=== PATIENT | female | born 1975 ===

== ENCOUNTER → 2022-06-18 12:54 | Outpatient (BNVA) | payer OTHER, SELFPAY | PROVIDERS: PCP Internal Medicine; Referring Provider Internal Medicine; Visit Provider Physician Assistant Surgical | DX: E66.01 Morbid (severe) obesity due to excess calories (principal); Z71.3 Dietary counseling and surveillance; Z68.41 Body mass index [BMI] 40.0-44.9, adult | CPT/HCPCS: 99202 ==

== ENCOUNTER 2022-06-22 12:38 | Outpatient (REF) | payer OTHER, SELFPAY ==
[2022-06-23 11:47] LABS: H Pylori Breath Test Negative (Negative)
== END 2022-06-22 12:39 | disposition home or self-care (01) ==
LOC: HO.LNP 12:38
PROVIDERS: PCP Internal Medicine; Visit Provider Physician Assistant Surgical
DX: E66.01 Morbid (severe) obesity due to excess calories (principal)
CPT/HCPCS: 83013; 99211

== ENCOUNTER 2022-07-07 09:01 | Outpatient (REF) | payer OTHER, SELFPAY ==
--- NOTE | ~2022-07-07 | XR_ITS ---
EXAMINATION: XR CHEST CLINICAL INFORMATION: Bariatric service evaluation. E66.01. COMPARISON: None TECHNIQUE: 2 views of the chest were obtained. FINDINGS: The lungs are clear. There is no hyperinflation, airspace consolidation, groundglass opacity. The costophrenic sulci are well-defined. The heart is normal in size. The vascularity is normal. The hilar and mediastinal contours and visualized bony structures are unremarkable. XR/XR chest 2V IMPRESSION: Unremarkable examination.
[2022-07-07 09:19] LABS: MANUAL DIFF FLAG NO
[2022-07-07 09:49] LABS: Estimated Average Glucose 105 mg/dL; Hemoglobin A1c % 5.3 %
[2022-07-07 10:01] LABS: Basophils Absolute Auto 0.1 X10*3/uL (0.0-0.2); Eosinophils Absolute Auto 0.1 X10*3/uL (0.0-0.4); Eosinophils Percent Auto 1.7 % (0-4); Hematocrit 42.1 % (37.0-47.0); Hemoglobin 14.2 g/dl (12.0-16.0); Imm Gran Abs Auto 0.01 X10*3/uL (0.00-0.03); Imm Gran Pct Auto 0.2 % (0.0-0.4); Lymphocytes Absolute Auto 2.2 X10*3/uL (1.2-4.9); Lymphocytes Percent Auto 38.3 % (20-40); Mean Corpuscular HGB Conc 33.7 g/dl (31.0-35.0); Mean Corpuscular Hemoglobin 29.2 pg (27.0-33.0); Mean Corpuscular Volume 86.4 fL (80.0-98.0); Mean Platelet Volume 9.9 fL (9.4-12.3); Monocytes Absolute Auto 0.3 X10*3/uL (0.1-1.2); Monocytes Percent Auto 5.9 % (2-11); Neutrophils Absolute Auto 3.1 x10*3/uL (2.0-8.3); Neutrophils Percent Auto 52.9 % (45-73); Platelet Count 352 X10*3/uL (160-400); Red Blood Count 4.87 X10*6/uL (4.20-5.50); White Blood Count 5.8 X10*3/uL (4.8-10.8)
[2022-07-07 10:10] LABS: Alanine Aminotransferase 28 U/L (0-31); Albumin Level 4.2 g/dL (3.5-5.0); Alkaline Phosphatase 73 U/L (39-117); Anion Gap 16 (12-20); Aspartate Amino Transferase 21 U/L (5-31); Bilirubin Total 1.3 mg/dL (0.0-1.0); Blood Urea Nitrogen 13 mg/dL (9-16); C Reactive Protein 0.36 mg/dL (< or = 0.50); Calcium 9.4 mg/dL (8.4-10.2); Carbon Dioxide 21 mmol/L (22-29); Chloride 108 mmol/L (96-108); Cholesterol 235 mg/dL; Estimated Glomerular Filt Rate > 60; Glucose Random 97 mg/dL (60-115); HDL Cholesterol 79 mg/dL; Iron 99 mcg/dL (30-160); LDL Cholesterol Calculated 132 mg/dl; Magnesium 2.1 mg/dL (1.6-2.6); Percent Iron Saturation 28 % (15-50); Potassium 4.4 mmol/L (3.3-5.1); Sodium 141 mmol/L (135-145); Total Iron Binding Capacity 348 mcg/dL (228-428); Total Protein 7.5 g/dL (6.5-8.0); Triglycerides 120 mg/dL; Unsaturated Iron Binding 249 ug/dL
[2022-07-07 10:36] LABS: Ferritin 54 ng/mL (10-250); TSH reflex Free T4 0.99 uIU/mL (0.32-4.0); Vitamin D 25-OH Total 23.6 ng/mL (>30)
[2022-07-07 11:05] LABS: Folate 16.9 ng/mL (> or = 4.0); Vitamin B12 463 pg/mL (200-900)
[2022-07-07 11:07] LABS: Insulin 16 uU/mL (2-29)
[2022-07-09 20:32] LABS: Calcium (PTHI) 9.4 mg/dL (8.6-10.2); PTHI 52 pg/mL (16-77)
[2022-07-11 20:12] LABS: Vitamin A 44 mcg/dL (38-98)
[2022-07-12 00:46] LABS: Zinc 84 mcg/dL (60-130)
[2022-07-14 12:36] LABS: Vitamin B1 8 nmol/L (8-30)
== END 2022-07-07 09:02 | disposition home or self-care (01) ==
LOC: HO.LAB 09:01
PROVIDERS: PCP Internal Medicine; Visit Provider Physician Assistant Surgical
DX: E66.01 Morbid (severe) obesity due to excess calories (principal)
CPT/HCPCS: 36415; 71046; 80053; 80061; 82306; 82607; 82728; 82746; 83036; 83525; 83540; 83735; 83970; 84425; 84443; 84590; 84630; 85025; 86140

== ENCOUNTER → 2022-07-10 12:50 | Outpatient (BNVA) | payer OTHER, SELFPAY | PROVIDERS: PCP Internal Medicine; Visit Provider Physician Assistant Surgical | DX: E66.9 Obesity, unspecified (principal); Z68.39 Body mass index [BMI] 39.0-39.9, adult | CPT/HCPCS: 99212 ==

== ENCOUNTER 2022-08-01 09:17 | Outpatient (REF) | payer OTHER, SELFPAY ==
--- NOTE | ~2022-08-01 | US_ITS ---
EXAMINATION: US COMPLETE ABDOMEN WITH LIVER ELASTOGRAPHY CLINICAL INFORMATION: Morbid to severe obesity due to excess calories. COMPARISON: None. TECHNIQUE: Real-time imaging of the abdominal viscera. Noninvasive ultrasound liver fibrosis assessment is performed using [employer] ElastPQ point quantification shear wave elastography (2D-SWE) with a C5-2 MHz transducer. Multiple elastography samples are obtained. FINDINGS: PANCREAS: Normal. The visualized pancreatic head and body are normal in appearance. The remainder of the pancreas is obscured from visualization by the overlying bowel gas. ABDOMINAL AORTA: The proximal, middle, and distal aortic segments are normal in caliber. INFERIOR VENA CAVA: Visualized portions are normal. LIVER: The liver demonstrates normal size, contour and increased echogenicity. There is focal fatty sparing. No additional focal solid lesion or intrahepatic biliary duct dilatation. The right lobe measures 17.5 cm in length. The left lobe measures 11.9 cm in length. Portal flow is hepatopedal. Shear wave liver elastography median stiffness is 1.17 m/s (reference: normal median stiffness is 1.3 m/s or less). IQR/median stiffness to assess sampling precision is 0.13 (reference: good quality data set is IQR/median stiffness of 0.15 or less). GALLBLADDER: Normal. The gallbladder is physiologically distended without evidence of stones, sludge, polyps, wall thickening or pericholecystic fluid. COMMON BILE DUCT: Normal in caliber measuring 0.4 cm in diameter. RIGHT KIDNEY: There is an echogenic midpole nonobstructive stone measuring 1.0 x 0.8 x 0.7 cm. No additional echogenic stones seen. There is no hydroureteronephrosis. The kidney measures 10.2 cm in maximum dimension. LEFT KIDNEY: Normal. No hydronephrosis. No renal calculi or focal parenchymal lesions. The kidney measures 11.0 cm in maximum dimension. SPLEEN: Normal. The spleen measures 10.0 cm in maximum dimension. FREE FLUID: None. US/US abdomen comp w elastography IMPRESSION: 1. Diffuse hepatic steatosis with areas of focal fatty sparing. Nonobstructive radiopaque calculi midpole right kidney. 2. Liver elastography: Median liver stiffness measures 1.17 cm/s, which corresponds to high probably normal. REFERENCE: Society of [employer]iologists in Ultrasound Liver Stiffness Thresholds (2020): LIVER STIFFNESS THRESHOLDS: *Liver Stiffness equal or less than 1.3 m/s: High probability of being normal. *Liver Stiffness less than 1.7 m/s: In the absence of other known clinical signs, rules out compensated advanced chronic liver disease. *Liver Stiffness 1.7-2.1 m/s: Suggestive of compensated advanced chronic liver disease but need further test for confirmation. *Liver Stiffness over 2.1 m/s: Rules in compensated advanced chronic liver disease. *Liver Stiffness over 2.4 m/s: Suggestive of clinically significant portal hypertension. QUALITY OF DATA SET: *IQR/Median value equal or less than 0.15 implies a quality data set. *IQR/Median value over 0.15 implies a poor quality data set. SIGNIFICANT CHANGE FROM PRIOR EXAM: Significant change if liver stiffness measurement is 10% or greater from prior exam. OTHER CONSIDERATIONS: The stage of liver fibrosis may be overestimated in the setting of acute hepatitis, liver inflammation, elevated liver function tests, hepatic vascular congestion, obstructive cholestasis, non-fasting state, and infiltrative diseases such as amyloidosis and lymphoma. In some patients with NAFLD, the liver stiffness thresholds for compensated advanced chronic liver disease may be lower. In causes other than viral hepatitis and NAFLD, liver stiffness thresholds are not well established.
--- NOTE | ~2022-08-01 | FL_ITS ---
EXAMINATION: XR FLUOROSCOPY UPPER GI WITH AIR CLINICAL INFORMATION: Obesity COMPARISON: None TECHNIQUE: Upper GI was performed using thin and thick barium and effervescent granules FINDINGS: Esophageal motility is normal. No hernia or reflux. The stomach and duodenum are normal. No fold thickening, mass, ulcer or stricture is seen. FLUOROSCOPY TIME: 0.4 DOSE AREA PRODUCT: 4.6 river per centimeter squared. 21 saved fluoroscopic images. FL/FL upper GI w air IMPRESSION: Unremarkable examination.
== END 2022-08-01 09:18 | disposition home or self-care (01) ==
LOC: HO.US 09:17
PROVIDERS: Visit Provider Physician Assistant Surgical
DX: Z01.818 Encounter for other preprocedural examination (principal); E66.01 Morbid (severe) obesity due to excess calories
CPT/HCPCS: 74246; 76705; 76981